=== PATIENT | male | born 1975 | race Caucasian/White ===

== ENCOUNTER → 2016-09-18 | Day surgery (SDC) | payer OTHER ==
[~2016-09-18] VITALS: Ht 177.8 cm; Wt 53.3 kg
[~2016-09-18] MED LIST: ADVIL LIQUI-GE200 MG PO; KEFLEX500 MG PO; NORCO 5-325 TA1 EACH PO; ZANTAC (NON-FO150 MG PO
--- NOTE | ~2016-09-18 | OR ---
PATIENT'S NAME: JACKSON KESSLER [facility] AGE: 40 Y [address] ROOM: [place] [id number] LOCATION: [facility] [place] ADMIT DATE: 09/18/2016 OR/Procedure Report DISCHARGE DATE: FAMILY PHYSICIAN: Kuldeep Garcia ATTENDING PHYSICIAN: Blas Weldon SURGEON: Blas Weldon DO [employer] ANALYST: Staff. DATE OF PROCEDURE: 09/18/2016 PREOPERATIVE DIAGNOSIS: Open wounds on the left 2nd, 3rd, and 4th digits. POSTOPERATIVE DIAGNOSIS: Open wounds on the left 2nd, 3rd, and 4th digits with a 5th digit nail bed injury. PROCEDURES: 1. Left 2nd digit dorsal full-thickness skin graft. 2. Left 3rd digit dorsal full-thickness skin graft. 3. Left 4th digit dorsal full-thickness skin graft. 4. Left 5th digit nail avulsion. ANESTHESIA: General plus regional. ESTIMATED BLOOD LOSS: Less than 20 mL. TOURNIQUET TIME: Less than 1 hour at 250 mmHg. COMPLICATION: None. DISPOSITION: Stable to recovery room. JUSTIFICATION FOR PROCEDURE: Jackson Kessler is a 40-year-old man with history of a traumatic injury to his left hand involving 2nd, 3rd, 4th, and 5th digits when it was crushed in a conveyor belt at work. The patient was treated conservatively with wound care and initially did well, but showed evidence of wound necrosis dorsally and had some suspicion for smoldering infection. The patient was initially treated by another physician and referred to pa for definitive care including possible wound coverage. The patient was counseled as to treatment options, risks versus benefits, and necessary afterward care. He gave informed consent to proceed with debridement of the left hand possible full-thickness skin grafting and any indicated procedures. PROCEDURE IN DETAIL: The patient was properly identified, both verbally and by name tag. He was taken to the operating suite and placed in operating table in the supine position. The anesthesiologist administered a general PATIENT'S NAME: JACKSON KESSLER [facility] AGE: 40 Y [address] ROOM: [place] [id number] LOCATION: [facility] [place] ADMIT DATE: 09/18/2016 OR/Procedure Report DISCHARGE DATE: FAMILY PHYSICIAN: , New ATTENDING PHYSICIAN: Blas Weldon anesthetic on the left upper extremity and intraoperatively digital block anesthetic was placed for postoperative pain control to the operative digits. Once adequate anesthesia was obtained, the left upper extremity was prepped and draped in usual sterile fashion. It was exsanguinated with an Esmarch bandage and a tourniquet inflated to level of the arm to 250 mmHg. The hand was viable with good capillary refill distally throughout prior to tourniquet inflation. The traumatic wounds had some eschar dorsally over the involved digits on the 2nd, 3rd, and 4th. The 5th digit had a nail deformity. The 2nd digit had some necrotic skin and soft tissue dorsally over the proximal phalanx and the proximal interphalangeal joint. The necrotic tissue was sharply resected. There was no exposed tendon underneath this, and the tissue over top of the tendon was viable. The necrotic eschar was discarded. The wound was copiously irrigated with saline. The wound margins were freshened up sharply and attention was turned to the 3rd digit. The 3rd digit had some necrotic skin and soft tissues dorsally over the proximal phalanx. This necrotic tissue was debrided, and the wound margins were freshened up sharply. Once again, the deep soft tissues were viable, and there was no exposed tendon or joint. Attention was then turned to the 4th digit. The 4th digit had necrotic soft tissue and eschar over the proximal phalanx dorsally. This wound was deeper down to the extensor retinaculum; however, there was still no exposed extensor tendon, and the retinaculum was intact. There was no purulence noted on any of these wounds. The eschar was excised, and the necrotic tissue debrided away sharply. The wound margins were freshened up. Wherever possible on digits 2, 3, and 4, neurovascular bundles were protected, and there was no arterial bleeding induced with the debridement. The wounds were all copiously irrigated with saline. Attention was then turned to the 5th digit. Under loupe magnification, careful examination revealed that the nail had actually lifted off the nail bed proximally and flipped up dorsal to the proximal skin fold of the nail. It was readily apparent that this was going to cause a significant nail deformity as a nail grew out underneath, and a decision was made to correct this while we were under anesthesia. Therefore, the nail was removed from the underlying nail bed bluntly with a Pace elevator and care was taken to avoid any further injury to the nail bed itself. After removing the nail, the nail bed was examined and copiously irrigated with saline. There was a small linear tear in the nail bed near the germinal matrix, but it was not of sufficient quality to require a repair. The new nail was already starting to grow in proximally. The new nail tissue was excised with blunt dissection and grasped with a forceps and removed, and the old nail was debrided removing all soft tissue attachments from it. The old nail was placed in a Betadine bath for disinfecting purposes and would use later on as a biologic splint. The wounds were all copiously irrigated with saline. The fingernail was taken out of the Betadine bath and re-debrided, irrigated, and then placed underneath the nail fold at the 5th digit as a physiologic splint. Once again, the nail bed injury was not sufficient quality for suture repair, but was amenable to treatment with a biologic PATIENT'S NAME: JACKSON KESSLER [facility] AGE: 40 Y [address] ROOM: [place] [id number] LOCATION: [facility] [place] ADMIT DATE: 09/18/2016 OR/Procedure Report DISCHARGE DATE: FAMILY PHYSICIAN: Kuldeep Garcia ATTENDING PHYSICIAN: Blas Weldon splint. Attention was then turned back to the wounds on digits 2, 3, and 4. The total surface area was approximately 24-25 square cm. A decision was made to take full-thickness skin grafting off the ipsilateral forearm to cover this. Therefore, a fresh instrument set was obtained. Surgical gown and gloves were changed and care was taken to avoid cross contamination from the injured portion of the hand to the donor site on the volar forearm. A fresh 15 blade knife was used to make an elliptical incision on the volar aspect of the left forearm taking slightly more in length than would be needed in order to ensure there was no short fall to the graft tissue available. The skin was removed in a full-thickness fashion taking care to avoid the penetration into the superficial fascial layers of the subcutaneous fat. The harvested skin was de-fated in the usual fashion. The donor site was copiously irrigated with saline. The tourniquet was then let down and hemostasis was obtained with minimal bipolar electrocautery and direct pressure. The donor site wound was closed with 5-0 nylon suture in an interrupted mattress stitch fashion after placing the donor skin on saline soaked gauze bed. The attention was then turned back to the recipient sites on the dorsal aspect of digits 2, 3, and 4. The skin graft was cut to fit the defects on the dorsal aspect of the digits and then each was sutured in place with 5-0 nylon suture in an interrupted fashion. The wounds were well covered. There was good capillary refill distally. There was no arterial bleeding. The fingers were placed through a range of motion, and there was no undue tension on the repairs to suspect contracture or lost mobility later. The excess skin was very minimal, and this was discarded. The wounds were all copiously irrigated with saline a final time and then covered with sterile bulky bundle dressing using nonstick gauze, and a splint was applied for comfort and protection. The patient was aroused from general anesthesia, extubated by the anesthesiologist, taken to the recovery room in good condition. Immediate postoperative examination in the recovery room showed good capillary refill distally in all 5 digits. Motor function was grossly intact throughout. Light touch sensation was absent in the operative digits due to persistence of the intraoperatively placed digital blockades. DO BRITTANY JARAMILLO/abraham /[id number] d: 09/23/161 t: 09/23/16 1651, OPERATIVE SUMMARY
== END | disposition disaster alternative care site (69) ==
LOC: GSDC 08:00 → GPOC 08:00 → GSDC 11:26
PROC: 0HRGX73 Replacement of Left Hand Skin with Autologous Tissue Substitute, Full Thickness, External Approach (ICD-10-PCS; principal; 2016-09-18)
PROC: 0HDQXZZ Extraction of Finger Nail, External Approach (ICD-10-PCS; 2016-09-18)
DX: S61.201A Unspecified open wound of left index finger without damage to nail, initial encounter (principal); S61.203A Unspecified open wound of left middle finger without damage to nail, initial encounter; S61.205A Unspecified open wound of left ring finger without damage to nail, initial encounter; S61.307A Unspecified open wound of left little finger with damage to nail, initial encounter; W31.89XA Contact with other specified machinery, initial encounter; Y99.0 Civilian activity done for income or pay
CPT/HCPCS: J0171; J0690; J2001; J7030